=== PATIENT | male | born 1950 | race Caucasian/White ===

== ENCOUNTER 2020-05-14 08:04 | Outpatient (REF) | payer MEDICARE, SELFPAY ==
[2020-05-14 11:41] LABS: Alanine Aminotransferase 18 U/L (0-40); Albumin Level 4.5 g/dL (3.5-5.0); Alkaline Phosphatase 74 U/L (39-117); Anion Gap 12 (12-20); Aspartate Amino Transferase 20 U/L (5-37); Bilirubin Total 0.7 mg/dL (0.0-1.0); Blood Urea Nitrogen 18 mg/dL (9-16); Carbon Dioxide 34 mmol/L (22-29); Chloride 100 mmol/L (96-108); Cholesterol 167 mg/dL; Estimated Glomerular Filt Rate > 60; Glucose Fasting 93 mg/dL (60-99); HDL Cholesterol 39 mg/dL; LDL Cholesterol Calculated 95 mg/dl; Potassium 4.7 mmol/l (3.3-5.1); Sodium 141 mmol/L (135-145); Total Protein 7.1 g/dL (6.5-8.0); Triglycerides 168 mg/dL
[2020-05-14 11:42] LABS: Estimated Average Glucose 117 mg/dL; Hemoglobin A1c % 5.7 %
== END 2020-05-14 08:05 | disposition home or self-care (01) ==
LOC: HO.MANLR 08:04
PROVIDERS: PCP Internal Medicine; Visit Provider Internal Medicine
DX: E78.00 Pure hypercholesterolemia, unspecified (principal); R73.01 Impaired fasting glucose; I10 Essential (primary) hypertension
CPT/HCPCS: 80053; 80061; 83036

== ENCOUNTER 2020-12-15 09:14 | Outpatient (REF) | payer MEDICARE, SELFPAY ==
[2020-12-15 11:15] LABS: Estimated Average Glucose 120 mg/dL; Hemoglobin A1c % 5.8 %
[2020-12-15 11:32] LABS: Alanine Aminotransferase 16 U/L (0-40); Albumin Level 4.3 g/dL (3.5-5.0); Alkaline Phosphatase 79 U/L (39-117); Anion Gap 15 (12-20); Aspartate Amino Transferase 19 U/L (5-37); Bilirubin Total 0.6 mg/dL (0.0-1.0); Blood Urea Nitrogen 14 mg/dL (9-16); Calcium 9.4 mg/dL (8.4-10.2); Carbon Dioxide 30 mmol/L (22-29); Chloride 102 mmol/L (96-108); Cholesterol 166 mg/dL; Estimated Glomerular Filt Rate > 60; Glucose Fasting 95 mg/dL (60-99); HDL Cholesterol 41 mg/dL; LDL Cholesterol Calculated 95 mg/dl; Potassium 4.9 mmol/L (3.3-5.1); Sodium 142 mmol/L (135-145); Total Protein 7.2 g/dL (6.5-8.0); Triglycerides 153 mg/dL
== END 2020-12-15 09:15 | disposition home or self-care (01) ==
LOC: HO.MANLDS 09:14
PROVIDERS: PCP Internal Medicine; Visit Provider Internal Medicine
DX: E78.00 Pure hypercholesterolemia, unspecified (principal); R73.01 Impaired fasting glucose; I10 Essential (primary) hypertension
CPT/HCPCS: 36415; 80053; 80061; 83036

== ENCOUNTER 2021-07-06 09:10 | Outpatient (REF) | payer MEDICARE, SELFPAY ==
[2021-07-06 11:10] LABS: Estimated Average Glucose 117 mg/dL; Hemoglobin A1c % 5.7 %
[2021-07-06 11:39] LABS: Alanine Aminotransferase 18 U/L (0-40); Albumin Level 4.6 g/dL (3.5-5.0); Alkaline Phosphatase 82 U/L (39-117); Anion Gap 13 (12-20); Aspartate Amino Transferase 22 U/L (5-37); Bilirubin Total 0.5 mg/dL (0.0-1.0); Blood Urea Nitrogen 15 mg/dL (9-16); Calcium 9.8 mg/dL (8.4-10.2); Carbon Dioxide 35 mmol/L (22-29); Chloride 99 mmol/L (96-108); Cholesterol 184 mg/dL; Estimated Glomerular Filt Rate > 60; Glucose Fasting 107 mg/dL (60-99); HDL Cholesterol 48 mg/dL; LDL Cholesterol Calculated 106 mg/dl; Potassium 4.6 mmol/L (3.3-5.1); Sodium 142 mmol/L (135-145); Total Protein 7.6 g/dL (6.5-8.0); Triglycerides 150 mg/dL
[2021-07-07 07:44] LABS: ~HepC Num1 0.12 S/CO (0.00-0.79); ~Hepatitis C Antibody Nonreactive (Nonreactive)
== END 2021-07-06 09:11 | disposition home or self-care (01) ==
LOC: HO.MANLDS 09:10
PROVIDERS: PCP Internal Medicine; Visit Provider Internal Medicine
DX: E78.00 Pure hypercholesterolemia, unspecified (principal); R73.01 Impaired fasting glucose; I10 Essential (primary) hypertension; Z11.59 Encounter for screening for other viral diseases
CPT/HCPCS: 36415; 80053; 80061; 83036; 86803

== ENCOUNTER 2022-01-23 10:33 | Outpatient (REF) | payer MEDICARE, SELFPAY ==
[2022-01-23 11:23] LABS: Estimated Average Glucose 120 mg/dL; Hemoglobin A1c % 5.8 %
[2022-01-23 11:46] LABS: Alanine Aminotransferase 18 U/L (0-40); Albumin Level 4.3 g/dL (3.5-5.0); Alkaline Phosphatase 71 U/L (39-117); Anion Gap 13 (12-20); Aspartate Amino Transferase 20 U/L (5-37); Bilirubin Total 0.6 mg/dL (0.0-1.0); Blood Urea Nitrogen 20 mg/dL (9-16); Calcium 9.4 mg/dL (8.4-10.2); Carbon Dioxide 34 mmol/L (22-29); Chloride 99 mmol/L (96-108); Cholesterol 140 mg/dL; Estimated Glomerular Filt Rate > 60; Glucose Random 106 mg/dL (60-115); HDL Cholesterol 41 mg/dL; LDL Cholesterol Calculated 76 mg/dl; Potassium 4.9 mmol/L (3.3-5.1); Sodium 141 mmol/L (135-145); Total Protein 7.2 g/dL (6.5-8.0); Triglycerides 117 mg/dL
== END 2022-01-23 10:34 | disposition home or self-care (01) ==
LOC: HO.MANLDS 10:33
PROVIDERS: Visit Provider Internal Medicine
DX: E78.00 Pure hypercholesterolemia, unspecified (principal); R73.01 Impaired fasting glucose; I10 Essential (primary) hypertension
CPT/HCPCS: 36415; 80053; 80061; 83036

== ENCOUNTER 2022-02-08 08:24 | Outpatient (REF) | payer MEDICARE, SELFPAY ==
[2022-02-08 10:46] LABS: Estimated Average Glucose 200 mg/dL; Hemoglobin A1c % 8.6 %
[2022-02-08 11:02] LABS: Alanine Aminotransferase 28 U/L (0-40); Albumin Level 4.4 g/dL (3.5-5.0); Alkaline Phosphatase 46 U/L (39-117); Anion Gap 20 (12-20); Aspartate Amino Transferase 34 U/L (5-37); Bilirubin Total 0.5 mg/dL (0.0-1.0); Blood Urea Nitrogen 34 mg/dL (9-16); Calcium 9.5 mg/dL (8.4-10.2); Carbon Dioxide 19 mmol/L (22-29); Chloride 105 mmol/L (96-108); Estimated Glomerular Filt Rate 36; Glucose Fasting 131 mg/dL (60-99); Potassium 4.6 mmol/L (3.3-5.1); Sodium 139 mmol/L (135-145); Total Protein 7.7 g/dL (6.5-8.0)
== END 2022-02-08 08:25 | disposition home or self-care (01) ==
LOC: HO.10HDL 08:24
PROVIDERS: Visit Provider Internal Medicine
DX: I12.9 Hypertensive chronic kidney disease with stage 1 through stage 4 chronic kidney disease, or unspecified chronic kidney disease (principal); N18.9 Chronic kidney disease, unspecified; E11.22 Type 2 diabetes mellitus with diabetic chronic kidney disease; G45.9 Transient cerebral ischemic attack, unspecified
CPT/HCPCS: 36415; 80053; 83036

== ENCOUNTER 2022-07-18 07:55 | Outpatient (REF) | payer MEDICARE, SELFPAY ==
[2022-07-18 11:06] LABS: MANUAL DIFF FLAG NO
[2022-07-18 11:18] LABS: Basophils Percent Auto 0.3 % (0-2); Eosinophils Absolute Auto 0.2 X10*3/uL (0.0-0.4); Eosinophils Percent Auto 2.3 % (0-4); Hematocrit 48.4 % (42.0-52.0); Hemoglobin 16.1 g/dl (14.0-18.0); Imm Gran Abs Auto 0.01 X10*3/uL (0.00-0.03); Imm Gran Pct Auto 0.1 % (0.0-0.4); Lymphocytes Absolute Auto 2.1 X10*3/uL (1.2-4.9); Lymphocytes Percent Auto 26.7 % (20-40); Mean Corpuscular HGB Conc 33.3 g/dl (31.0-36.0); Mean Corpuscular Hemoglobin 31.4 pg (27.0-33.0); Mean Corpuscular Volume 94.3 fL (80.0-98.0); Mean Platelet Volume 11.7 fL (9.4-12.4); Monocytes Absolute Auto 0.9 X10*3/uL (0.1-1.2); Monocytes Percent Auto 11.4 % (2-11); Neutrophils Absolute Auto 4.6 x10*3/uL (2.0-8.3); Neutrophils Percent Auto 59.2 % (45-73); Platelet Count 150 X10*3/uL (160-400); Red Blood Count 5.13 X10*6/uL (4.60-5.80); Red Cell Distribution Width 12.3 % (11.0-16.0); White Blood Count 7.8 X10*3/uL (4.8-10.8)
[2022-07-18 11:24] LABS: Estimated Average Glucose 114 mg/dL; Hemoglobin A1c % 5.6 %
[2022-07-18 11:50] LABS: Alanine Aminotransferase 16 U/L (0-40); Albumin Level 4.4 g/dL (3.5-5.0); Alkaline Phosphatase 84 U/L (39-117); Anion Gap 16 (12-20); Aspartate Amino Transferase 19 U/L (5-37); Bilirubin Total 0.7 mg/dL (0.0-1.0); Blood Urea Nitrogen 17 mg/dL (9-16); Calcium 9.7 mg/dL (8.4-10.2); Carbon Dioxide 33 mmol/L (22-29); Chloride 100 mmol/L (96-108); Cholesterol 175 mg/dL; Estimated Glomerular Filt Rate > 60; Glucose Random 107 mg/dL (60-115); HDL Cholesterol 46 mg/dL; LDL Cholesterol Calculated 97 mg/dl; Sodium 144 mmol/L (135-145); Total Protein 7.2 g/dL (6.5-8.0); Triglycerides 161 mg/dL
== END 2022-07-18 07:56 | disposition home or self-care (01) ==
LOC: HO.MANLDS 07:55
PROVIDERS: Visit Provider Internal Medicine
DX: E78.00 Pure hypercholesterolemia, unspecified (principal); I10 Essential (primary) hypertension; R73.01 Impaired fasting glucose
CPT/HCPCS: 36415; 80053; 80061; 83036; 85025

== ENCOUNTER 2022-09-02 09:01 | Emergency (ER) | payer MEDICARE, SELFPAY ==
--- NOTE | ~2022-09-02 | XR_ITS ---
EXAMINATION: XR CHEST CLINICAL INFORMATION: Cough COMPARISON: None available. TECHNIQUE: Frontal view of the chest was obtained. FINDINGS: No significant abnormality is noted involving the heart, lungs, mediastinum, bony thorax or soft tissues. XR/XR chest 1V IMPRESSION: Unremarkable chest examination.
[2022-09-02 09:08] VITALS: BP 212/83; PULSE 102; RESP 20; TEMP 36.3; O2SAT 90; BMI 31.0
--- NOTE | 2022-09-02 09:31 | ED.GENADULT ---
HPI - General Adult General Chief complaint: General Medical Stated complaint: nose bleed Time Seen by Provider: 09/02/22 09:25 Source: patient Mode of arrival: ambulatory Limitations: no limitations History of Present Illness HPI narrative: Epistaxis right nostril, the patient presented complaining of a nose bleed since yesterday the bleeding is in the right nostril Onset (ago): day(s) (1) Severity: moderate Quality: burning Pain Consistency: constant Exacerbating factors: none Related Data Previous Rx's Medication Instructions Recorded amoxicillin 500 mg tablet 500 mg PO TID #15 tabs 09/02/22 Allergies Allergy/AdvReac Type Severity Reaction Status Date / Time No Known Allergies Allergy Verified 09/02/22 09:30 Review of Systems Constitutional: Constitutional: Reports no additional constitutional complaints Cardiovascular: Comments: rt epistaxis PMFSH Past Medical History [facility] Narrative: Hypertension Social History Social History Alcohol intake: never Smoked in Last 30 Days: Yes Use of substances other than those prescribed or required for medical reasons: No Advance Directives: No Physical Exam ED Vital Signs: Vital Signs - 24 hr 09/02/22 09:08 09/02/22 09:46 09/02/22 10:21 Temperature 97.4 F Pulse Rate 102 H 93 86 Respiratory Rate 20 18 Blood Pressure 212/83 H 206/88 H 195/82 H Pulse Oximetry 90 L 90 L Oxygen Delivery Method Room Air Room Air 09/02/22 10:30 09/02/22 13:24 Temperature Pulse Rate 89 87 Respiratory Rate 18 18 Blood Pressure 178/76 H 165/70 H Pulse Oximetry 90 L 92 Oxygen Delivery Method Room Air Room Air BMI result Body Mass Index 31.0 Const General: cooperative Nutritional Appearance: average body habitus and well nourished Orientation/consciousness: patient oriented x3 HENMT Head: Yes normal to inspection Ears: hearing grossly normal bilaterally General nose exam: Normal external nose present, Epistaxis present on the right and Other nasal findings present Mouth: Normal oral and palatal mucosa present Throat: Yes posterior oropharynx normal Neck Neck: Yes normal visual inspection Chest Chest palpation & inspection: normal inspection of the chest Resp Effort & Inspection: normal respiratory effort Auscultation: clear to auscultation bilaterally Cardio Jugular venous distension: no JVD Rate: regular rate Rhythm: regular rhythm GI Inspection: Yes normal to inspection Palpation (GI): Soft to palpation, not firm, nontender and no guarding Skin General skin exam: no rashes or lesions noted, elasticity normal and turgor normal Lesions: no lesions Rashes: no rashes Wounds: no wounds Neuro General: patient oriented x3 Course Reevaluation(s) Reevaluation #1: No bleeding at this time, sat was noted to be 90% room air but he is active smoker most likely a COPD CXR negative Time: 11:10 Reevaluation #2: No bleeding noted he was also serve a few hours emergency department, the [facility] he was packed, his oxygen was noted to be in the low side he has a COPD ear I was going to do a CT scan of the chest to rule out PE but the patient refused stating that he feels well he does not feel short of breath. At this point the patient requests discharge we will discharge him home with follow-up with the ENT and PCP Time: 12:31 Medications Administered Discontinued Medications Generic Name Dose Route Start Last Admin Trade Name Kongq PRN Reason Stop Dose Admin Clonidine HCl 0.1 mg 09/02/22 10:22 09/02/22 10:30 Clonidine Hcl 0.1 Mg Tablet PO 09/02/22 10:23 0.1 mg ONCE ONE Administration Protocol Lidocaine HCl 15 ml 09/02/22 09:30 09/02/22 10:30 Lidocaine Hcl Viscous 2 % 15 Ml Solution MUCOUS MEM 09/02/22 09:31 15 ml ONCE ONE Administration Lisinopril 20 mg 09/02/22 09:31 09/02/22 09:46 Lisinopril 20 Mg Tablet PO 09/02/22 09:32 20 mg ONCE ONE Administration Protocol Procedures Epistaxis Control Time Out Performed: Yes Nostril: Yes right Nose prepped with: Yes lidocaine Direct inspection: Yes unable to visualize Epistaxis treatment: Yes inflatable pack Results of treatment: Yes bleeding controlled Complications: Yes none Medical Decision Making Medical Decision Making MDM Narrative: Patient presented with epistaxis no other complain the right nostril was packed Differential Diagnosis Differential Diagnoses: The differential diagnosis associated with the presentation includes Admission/Observation Consideration of admission/observation: Escalation of care including admission/observation considered Lab Data MDM Lab Attestation statement: I reviewed the patient's lab results. 09/02/22 09:37 09/02/22 09:36 Labs: Lab Results 09/02/22 09/02/22 09/02/22 Range/Units 09:36 09:37 09:37 WBC 5.4 (4.8-10.8) X10*3/uL RBC 4.84 (4.60-5.80) X10*6/uL Hgb 15.3 (14.0-18.0) g/dl Hct 45.5 (42.0-52.0) % MCV 94.0 (80.0-98.0) fL MCH 31.6 (27.0-33.0) pg MCHC 33.6 (31.0-36.0) g/dl RDW 12.5 (11.0-16.0) % Plt Count 149 L (160-400) X10*3/uL MPV 11.2 (9.4-12.4) fL Immature Gran % (Auto) 0.4 (0.0-0.4) % Neut % (Auto) 54.0 (45-73) % Lymph % (Auto) 31.2 (20-40) % Brantley % (Auto) 10.9 (2-11) % Eos % (Auto) 2.8 (0-4) % Baso % (Auto) 0.7 (0-2) % Lymph # (Auto) 1.7 (1.2-4.9) X10*3/uL Brantley # (Auto) 0.6 (0.1-1.2) X10*3/uL Eos # (Auto) 0.2 (0.0-0.4) X10*3/uL Baso # (Auto) 0.0 (0.0-0.2) X10*3/uL Abs Immat Gran (auto) 0.02 (0.00-0.03) X10*3/uL Absolute Neuts (auto) 2.9 (2.0-8.3) x10*3/uL Absolute Nucleated RBC 0.000 (0.0-0.012) X10*3/uL Nucleated RBC % (auto) 0.0 (0.0-0.2) /100WBC PT 11.4 (10.0-13.1) SEC INR 1.0 (0.9-1.1) APTT 29.8 (26.0-36.4) SEC Sodium 140 (135-145) mmol/L Potassium 4.7 (3.3-5.1) mmol/L Chloride 100 (96-108) mmol/L Carbon Dioxide 31 H (22-29) mmol/L Anion Gap 14 (12-20) BUN 16 (9-16) mg/dL Creatinine 0.79 (0.5-1.4) mg/dL Estim Creat Clear Calc 94.8 Estimated GFR > 60 Random Glucose 107 (60-115) mg/dL Calcium 9.3 (8.4-10.2) mg/dL Total Bilirubin 0.6 (0.0-1.0) mg/dL AST 19 (5-37) U/L ALT 16 (0-40) U/L Alkaline Phosphatase 84 (39-117) U/L Total Protein 7.2 (6.5-8.0) g/dL Albumin 4.5 (3.5-5.0) g/dL Independent Interpretation I performed an independent interpretation of an: Plain X-Ray Interpretation: negatiuve Radiology Impression Discussion of test interpretation with radiology: I have reviewed the radiologist's reading. Radiologist Impression: EXAMINATION: XR CHEST CLINICAL INFORMATION: Cough COMPARISON: None available. TECHNIQUE: Frontal view of the chest was obtained. FINDINGS: No significant abnormality is noted involving the heart, lungs, mediastinum, bony thorax or soft tissues. XR/XR chest 1V IMPRESSION: Unremarkable chest examination. ? Dictated By: Shashank Kumar MD Signed By: <Electronically signed by Shashank Kumar MD in OV> 09/02/22 1054 DD/ 1027 TD/TT:? Sole Layer Hand: [facility] – [place] Discharge Plan Discharge Clinical Impression: Epistaxis Patient Disposition: Home, Self-Care Instructions: Nosebleed (ED) Additional Instructions: Take antibiotic as directed, keep the packing until you see the ENT, the packing should be removed in 3 days, follow-up with your primary care physician you oxygen was in low side most likely because you have COPD from smoking, however your refused the the CT scan of the chest Prescriptions: New amoxicillin 500 mg tablet 500 mg PO TID Qty: 15 0RF Referrals: Juan Pablo Fernandez [Physician] - 3 days Interventions: ED Discharge Assessment Last Done: 09/02/22 13:24 Discharge Date/Time: 09/02/22 13:26
[2022-09-02 09:41] LABS: MANUAL DIFF FLAG NO
[2022-09-02 09:46] VITALS: BP 206/88; PULSE 93; RESP 18
[2022-09-02] MEDS: lisinopriL 20 MG TABLET PO (09:46)
[2022-09-02 10:02] LABS: Basophils Percent Auto 0.7 % (0-2); Eosinophils Absolute Auto 0.2 X10*3/uL (0.0-0.4); Eosinophils Percent Auto 2.8 % (0-4); Hematocrit 45.5 % (42.0-52.0); Hemoglobin 15.3 g/dl (14.0-18.0); Imm Gran Abs Auto 0.02 X10*3/uL (0.00-0.03); Imm Gran Pct Auto 0.4 % (0.0-0.4); Lymphocytes Absolute Auto 1.7 X10*3/uL (1.2-4.9); Lymphocytes Percent Auto 31.2 % (20-40); Mean Corpuscular HGB Conc 33.6 g/dl (31.0-36.0); Mean Corpuscular Hemoglobin 31.6 pg (27.0-33.0); Mean Platelet Volume 11.2 fL (9.4-12.4); Monocytes Absolute Auto 0.6 X10*3/uL (0.1-1.2); Monocytes Percent Auto 10.9 % (2-11); Neutrophils Absolute Auto 2.9 x10*3/uL (2.0-8.3); Platelet Count 149 X10*3/uL (160-400); Red Blood Count 4.84 X10*6/uL (4.60-5.80); Red Cell Distribution Width 12.5 % (11.0-16.0); White Blood Count 5.4 X10*3/uL (4.8-10.8)
[2022-09-02 10:06] LABS: Prothrombin Time 11.4 SEC (10.0-13.1)
[2022-09-02 10:08] LABS: Alanine Aminotransferase 16 U/L (0-40); Albumin Level 4.5 g/dL (3.5-5.0); Alkaline Phosphatase 84 U/L (39-117); Anion Gap 14 (12-20); Aspartate Amino Transferase 19 U/L (5-37); Bilirubin Total 0.6 mg/dL (0.0-1.0); Blood Urea Nitrogen 16 mg/dL (9-16); Calcium 9.3 mg/dL (8.4-10.2); Carbon Dioxide 31 mmol/L (22-29); Chloride 100 mmol/L (96-108); Creatinine Clr Calc Pharmacy 94.8; Estimated Glomerular Filt Rate > 60; Glucose Random 107 mg/dL (60-115); Potassium 4.7 mmol/L (3.3-5.1); Sodium 140 mmol/L (135-145); Total Protein 7.2 g/dL (6.5-8.0)
[2022-09-02 10:09] LABS: Partial Thromboplastin Time 29.8 SEC (26.0-36.4)
[2022-09-02 10:21] VITALS: BP 195/82; PULSE 86; O2SAT 90
[2022-09-02 10:30] VITALS: BP 178/76; PULSE 89; RESP 18; O2SAT 90
[2022-09-02] MEDS: Lidocaine HCl Viscous 2 % 15 ML SOLUTION MUCOUS MEM (10:30)
[2022-09-02] MEDS: cloNIDine HCL 0.1 MG TABLET PO (10:30)
--- NOTE | 2022-09-02 10:40 | PC.NURSE ---
Rhynorocket in place to right nare. BP noted to still be elevate, patient medicated per MAR. Patient calm and cooperative; X-ray obtained awaiting results at this time.
--- NOTE | 2022-09-02 11:00 | PC.NURSE ---
Patient with Low O2 sat, high 80's to 90%. Provider made aware, no supplemental O2 at this time; will get CT to check for blood clot.
--- NOTE | 2022-09-02 12:30 | PC.NURSE ---
Patient declining to have CT scan done at this time, would prefer to be discharged home. Patient well appearing sitting at edge of bed. O2 sat 92% on room air.
[2022-09-02 13:24] VITALS: BP 165/70; PULSE 87; RESP 18; O2SAT 92
== END 2022-09-02 13:26 | disposition home or self-care (01) ==
PROVIDERS: Emergency Provider Emergency Medicine; PCP Internal Medicine
DX: R04.0 Epistaxis (principal); I10 Essential (primary) hypertension
CPT/HCPCS: 30901; 36415; 71045; 80053; 85025; 85610; 85730; 99284

== ENCOUNTER 2022-09-02 19:52 | Emergency (ER) | payer MEDICARE, SELFPAY ==
[2022-09-02 19:59] VITALS: BP 190/72; PULSE 94; RESP 20; TEMP 36.7; O2SAT 93; BMI 31.0
--- NOTE | 2022-09-02 19:59 | ED_ITS ---
History of Present Illness General Chief Complaint: Epistaxis <YESSY Maldonado Last Filed: 09/02/22 20:05> Stated Complaint: recurring bloody nose <YESSY Maldonado Last Filed: 09/02/22 20:05> Time Seen by Provider: 09/02/22 21:57 <YESSY Maldonado Last Filed: 09/02/22 20:05> Source: patient <YESSY Mejía Last Filed: 09/02/22 23:07> Mode of arrival: ambulatory <YESSY Mejía Last Filed: 09/02/22 23:07> Limitations: no limitations <YESSY Mejía Last Filed: 09/02/22 23:07> History of Present Illness HPI Narrative: 72-year-old male history of COPD presents for the 2nd time today for epistaxis. Patient tells me is nose has been bleeding since yesterday. He was seen in the emergency department earlier today and he had a rhino rocket placed to the right naris, he tells me he went home and noted that there is bleeding around the rhino rocket. Patient is very uncomfortable. He is not on any anticoagulants or aspirin. No history of hypercoagulable disorders. Denies headache, vision changes, nausea, vomiting, chest pain, shortness of breath, headache, vision changes. <YESSY Mejía Last Filed: 09/02/22 23:07> Related Data Home Medications: Previous Rx's Medication Instructions Recorded amoxicillin 500 mg tablet 500 mg PO TID #15 tabs 09/02/22 <YESSY Maldnoado Last Filed: 09/02/22 20:05> Allergies/Adverse Reactions: Allergies Allergy/AdvReac Type Severity Reaction Status Date / Time No Known Allergies Allergy Verified 09/02/22 09:30 <YESSY Maldonado Last Filed: 09/02/22 20:05> Review of Systems Review of Systems: Constitutional : No Weight loss, No Fever, No Chills, No Fatigue, No Malaise ENT/Mouth : No sore throat, No Rhinorrhea, + epistaxis Eyes: No Eye Pain, No Swelling, No Redness Cardiovascular : No Chest Pain, No SOB, No Dyspnea on Exertion, No Orthopnea, No Edema, No Palpitations Respiratory : No Cough, No Sputum, No Wheezing Gastrointestinal : No Nausea, No Vomiting, No Diarrhea, No Constipation, No abdominal Pain, No Hematochezia, No Melena Genitourinary : No Dysuria, No Urinary Frequency, No Hematuria, Musculoskeletal : No joint pain, No Myalgias, No Joint Swelling Skin : No Skin Lesions, No rash Neuro : No Weakness, No Numbness, No Dizziness, No Headache Psych : No Anxiety/Panic, No Depression All other systems reviewed and are negative <YESSY Mejía - Last Filed: 09/02/22 23:07> Yes all other systems are reviewed and are negative <YESSY Mejía - Last Filed: 09/02/22 23:07> [facility] Past Medical History Attestation statement: The following information was validated with the patient. <YESSY Mejía - Last Filed: 09/02/22 23:07> Source: old records reviewed and nursing notes reviewed <YESSY Mejía - Last Filed: 09/02/22 23:07> Social History Social History: Social History Alcohol intake: never Advance Directives: No Advance Directives Information Provided: No <YESSY Maldonado - Last Filed: 09/02/22 20:05> Physical Exam Vital Signs: Vital Signs: Last Vital Signs Temp 98.0 F 09/02/22 19:59 Pulse 94 09/02/22 19:59 Resp 20 09/02/22 19:59 BP 190/72 H 09/02/22 19:59 Pulse Ox 93 09/02/22 19:59 O2 Del Method Room Air 09/02/22 19:59 BMI result Body Mass Index 31.0 <YESSY Maldonado - Last Filed: 09/02/22 20:05> Vital Signs: Last Vital Signs Temp 98.0 F 09/02/22 19:59 Pulse 94 09/02/22 19:59 Resp 09/02/22 19:59 BP 190/72 H 09/02/22 19:59 Pulse Ox 93 09/02/22 19:59 O2 Del Method Room Air 09/02/22 19:59 BMI result Body Mass Index 31.0 vss <YESSY Mejía Last Filed: 09/02/22 23:07> Appearance: Alert.? Oriented X3.? No acute distress.? Head: Normocephalic, atraumatic, no step-offs or deformities Eyes: Pupils equal, round and reactive to light.? ENT: Pharynx normal.?+ active bleeding from right naris around rhino rocket. Normal left nares. No bleeding in oropharynx. Neck: Normal inspection.? Neck supple.? CVS: Normal heart rate and rhythm.? Pulses normal.? Respiratory: No respiratory distress.? Breath sounds normal.? Abdomen: Soft and nontender.? Skin: Skin warm and dry.? Normal skin color.? Normal skin turgor.? Extremities: No lower extremity edema.? No calf ttp. 5/5 strength to bilateral upper and lower extremities Back: No midline tenderness, no C-spine tenderness, full range of motion, no CVA tenderness bilaterally Neuro: Oriented X 3.? No motor deficit.? No sensory deficit. CN 2-12 intact <YESSY Mejía Last Filed: 09/02/22 23:07> Course Course Course Narrative: RME--72yo M w/PMHx right nare epistaxis s/p rhinorhocket placement in our ED this AM presenting to the ED c/o bleeding around rhocket since discharge, starting 1hr after being home. Reports sx occur with any movement/position changes. Reports mild lightheadedness. Denies fever and anticoagulation. Patient noted to be hypoxic 90% on room air this morning, refused CTA. Denies SOB 93% in triage now, scant leaking noted from right nare around rhinorocket. No posterior oropharyngeal bleeding appreciated <YESSY Maldonado Last Filed: 09/02/22 20:05> Reevaluation(s) Reevaluation #1: Patient's CBC with slight decrease in hemoglobin and hematocrit on consume tear to earlier this morning. He was 15.3 and 45.5 now 14.7 and 43.1. Platelet count is 142. Coags unremarkable. Earlier today patient had an unremarkable chest x-ray. Again patient refusing CT of the chest to rule out PE. <YESSY Mejía Last Filed: 09/02/22 23:07> Time: 22:28 <YESSY Mejía - Last Filed: 09/02/22 23:07> Reevaluation #2: New rhino rocket was placed with soaked in TXA. Patient tolerated procedure well. <YESSY Mejía - Last Filed: 09/02/22 23:07> Time: 22:44 <YESSY Mejía - Last Filed: 09/02/22 23:07> Reevaluation #3: On re-evaluation patient's nose is no longer bleeding around the rhino rocket. Patient tells me that it feels much more snug to his nares, hemodynami glenn stable on the monitor. Again continues to refuse CTA of the chest. Patient to be discharged home with prompt PCP follow-up as well as ENT follow- up. Educated patient on diagnosis and treatment plan, answered all question, patient verbalizes understanding. At this time patient will be discharged home, advised to return with new or worsening symptoms. Educated on worrisome signs and symptoms and when to return. At this time I feel comfortable discharge home. <YESSY Mejía - Last Filed: 09/02/22 23:07> Time: 23:06 <YESSY Mejía - Last Filed: 09/02/22 23:07> Consultations Consultation #1: Discussed w/ Dr. Soto who agrees w/ dx and tx plan <YESSY Mejía - Last Filed: 09/02/22 23:07> Time: 23:07 <YESSY Mejía - Last Filed: 09/02/22 23:07> Medications Administered Discontinued Medications Generic Name Dose Route Start Last Admin Trade Name Freq PRN Reason Stop Dose Admin Tranexamic Acid 500 mg 09/02/22 22:24 09/02/22 22:33 Tranexamic Acid 1,000 Mg/10 Ml Vial INTRANASAL 09/02/22 22:25 500 mg ONCE ONE Administration <YESSY Maldonado - Last Filed: 09/02/22 20:05> Medications Administered Discontinued Medications Generic Name Dose Route Start Last Admin Trade Name Freq PRN Reason Stop Dose Admin Tranexamic Acid 500 mg 09/02/22 22:24 09/02/22 22:33 Tranexamic Acid 1,000 Mg/10 Ml Vial INTRANASAL 09/02/22 22:25 500 mg ONCE ONE Administration <YESSY Mejía Last Filed: 09/02/22 23:07> Medical Decision Making Medical Decision Making [facility] Narrative: [id number] 72-year-old male presents with epistaxis, was seen here earlier today for the same complaint had a rhino rocket the right nares. Despite this continues to bleed Physical exam significant for active bleeding from right naris around rhino rocket. Normal left nares. No bleeding in oropharynx. Patient is noted to be 93% on room air. Likely posterior nose bleed hypertension could be contributing to this. Other differentials include hypocoagulable disorders. Unlikely medication induced. Patient was 90% on room air earlier today, now 93% on room air, was offered a CTA by previous provider in by this PA-C however patient refusing he says he is not short of breath and he does not think he has a blood clot. Breath sounds clear unlikely pneumonia, CHF. Plan at this time is to remove rhino rocket and replace with a rhino rocket soaked in TXA. <YESSY Mejía Last Filed: 09/02/22 23:07> Differential Diagnosis Differential Diagnoses: The differential diagnosis associated with the presentation includes <YESSY Mejía Last Filed: 09/02/22 23:07> Likely posterior nose bleed hypertension could be contributing to this. Other differentials include hypocoagulable disorders. Unlikely medication induced. Patient was 90% on room air earlier today, now 93% on room air, was offered a CTA by previous provider in by this PA-C however patient refusing he says he is not short of breath and he does not think he has a blood clot.Breath sounds clear unlikely pneumonia, CHF. <YESSY Mejía Last Filed: 09/02/22 23:07> Admission/Observation Consideration of admission/observation: Escalation of care including admission/observation considered <YESSY Mejía Last Filed: 09/02/22 23:07> Lab Data [facility] Lab Attestation statement: I reviewed the patient's lab results. <YESSY Mejía Last Filed: 09/02/22 23:07> Result Diagrams: 09/02/22 20:52 <YESSY Maldonado - Last Filed: 09/02/22 20:05> Labs: Lab Results 09/02/22 09/02/22 Range/Units 20:52 20:52 WBC 5.9 (4.8-10.8) X10*3/uL RBC 4.72 (4.60-5.80) X10*6/uL Hgb 14.7 (14.0-18.0) g/dl Hct 43.1 (42.0-52.0) % MCV 91.3 (80.0-98.0) fL MCH 31.1 (27.0-33.0) pg MCHC 34.1 (31.0-36.0) g/dl RDW 12.4 (11.0-16.0) % Plt Count 142 L (160-400) X10*3/uL MPV 10.7 (9.4-12.4) fL Immature Gran % (Auto) 0.2 (0.0-0.4) % Neut % (Auto) 55.2 (45-73) % Lymph % (Auto) 28.8 (20-40) % Garza % (Auto) 12.8 H (2-11) % Eos % (Auto) 2.7 (0-4) % Baso % (Auto) 0.3 (0-2) % Lymph # (Auto) 1.7 (1.2-4.9) X10*3/uL Garza # (Auto) 0.8 (0.1-1.2) X10*3/uL Eos # (Auto) 0.2 (0.0-0.4) X10*3/uL Baso # (Auto) 0.0 (0.0-0.2) X10*3/uL Abs Immat Gran (auto) 0.01 (0.00-0.03) X10*3/uL Absolute Neuts (auto) 3.2 (2.0-8.3) x10*3/uL Absolute Nucleated RBC 0.000 (0.0-0.012) X10*3/uL Nucleated RBC % (auto) 0.0 (0.0-0.2) /100WBC PT 11.9 (10.0-13.1) SEC INR 1.0 (0.9-1.1) <YESSY Maldonado - Last Filed: 09/02/22 20:05> Lab Results 09/02/22 09/02/22 Range/Units 20:52 20:52 WBC 5.9 (4.8-10.8) X10*3/uL RBC 4.72 (4.60-5.80) X10*6/uL Hgb 14.7 (14.0-18.0) g/dl Hct 43.1 (42.0-52.0) % MCV 91.3 (80.0-98.0) fL MCH 31.1 (27.0-33.0) pg MCHC 34.1 (31.0-36.0) g/dl RDW 12.4 (11.0-16.0) % Plt Count 142 L (160-400) X10*3/uL MPV 10.7 (9.4-12.4) fL Immature Gran % (Auto) 0.2 (0.0-0.4) % Neut % (Auto) 55.2 (45-73) % Lymph % (Auto) 28.8 (20-40) % Garza % (Auto) 12.8 H (2-11) % Eos % (Auto) 2.7 (0-4) % Baso % (Auto) 0.3 (0-2) % Lymph # (Auto) 1.7 (1.2-4.9) X10*3/uL Garza # (Auto) 0.8 (0.1-1.2) X10*3/uL Eos # (Auto) 0.2 (0.0-0.4) X10*3/uL Baso # (Auto) 0.0 (0.0-0.2) X10*3/uL Abs Immat Gran (auto) 0.01 (0.00-0.03) X10*3/uL Absolute Neuts (auto) 3.2 (2.0-8.3) x10*3/uL Absolute Nucleated RBC 0.000 (0.0-0.012) X10*3/uL Nucleated RBC % (auto) 0.0 (0.0-0.2) /100WBC PT 11.9 (10.0-13.1) SEC INR 1.0 (0.9-1.1) <YESSY Mejía - Last Filed: 09/02/22 23:07> Critical Care Time Critical Care Time Critical Care Time: No <YESSY Mejía Last Filed: 09/02/22 23:07> Discharge Plan Discharge Clinical Impression: Epistaxis <YESSY Maldonado Last Filed: 09/02/22 20:05> Patient Disposition: Home, Self-Care <YESSY Maldonado Last Filed: 09/02/22 20:05> Instructions: Nosebleed (ED) <YESSY Maldonado Last Filed: 09/02/22 20:05> Additional Instructions: Take your medications as prescribed. If you were prescribed antibiotics today, it is important that you take your medication to their entirety, do not skip any doses, do not finish them early. Follow-up with your primary care provider this week. Follow up with ears, nose and throat as soon as possible Return to the emergency department with new or worsening symptoms. Such as fevers, chills, chest pain, shortness of breath, nausea, vomiting, dizziness, headache, vision changes, lethargy, nasal bleeding In case of emergency call 911 <YESSY Maldonado Last Filed: 09/02/22 20:05> Prescriptions: No Action amoxicillin 500 mg tablet 500 mg PO TID Qty: 15 0RF <YESSY Maldonado - Last Filed: 09/02/22 20:05> Referrals: Mike Dominguez MD [Primary Care Provider] - 2 days Juan Pablo Fernandez [Physician] - 3 days <YESSY Maldonado Last Filed: 09/02/22 20:05>
[2022-09-02 20:56] LABS: MANUAL DIFF FLAG NO
[2022-09-02 20:57] LABS: Basophils Percent Auto 0.3 % (0-2); Eosinophils Absolute Auto 0.2 X10*3/uL (0.0-0.4); Eosinophils Percent Auto 2.7 % (0-4); Hematocrit 43.1 % (42.0-52.0); Hemoglobin 14.7 g/dl (14.0-18.0); Imm Gran Abs Auto 0.01 X10*3/uL (0.00-0.03); Imm Gran Pct Auto 0.2 % (0.0-0.4); Lymphocytes Absolute Auto 1.7 X10*3/uL (1.2-4.9); Lymphocytes Percent Auto 28.8 % (20-40); Mean Corpuscular HGB Conc 34.1 g/dl (31.0-36.0); Mean Corpuscular Hemoglobin 31.1 pg (27.0-33.0); Mean Corpuscular Volume 91.3 fL (80.0-98.0); Mean Platelet Volume 10.7 fL (9.4-12.4); Monocytes Absolute Auto 0.8 X10*3/uL (0.1-1.2); Monocytes Percent Auto 12.8 % (2-11); Neutrophils Absolute Auto 3.2 x10*3/uL (2.0-8.3); Neutrophils Percent Auto 55.2 % (45-73); Platelet Count 142 X10*3/uL (160-400); Red Blood Count 4.72 X10*6/uL (4.60-5.80); Red Cell Distribution Width 12.4 % (11.0-16.0); White Blood Count 5.9 X10*3/uL (4.8-10.8)
[2022-09-02 21:03] LABS: Prothrombin Time 11.9 SEC (10.0-13.1)
[2022-09-02] MEDS: Tranexamic Acid 1,000 MG/10 ML VIAL 500 MG INTRANASAL (22:33)
== END 2022-09-02 23:11 | disposition home or self-care (01) ==
PROVIDERS: Physician Assistant; Emergency Provider Emergency Medicine; PCP Internal Medicine
DX: R04.0 Epistaxis (principal)
CPT/HCPCS: 36415; 85025; 85610; 99282

== ENCOUNTER 2022-10-17 15:39 | Outpatient (REF) | payer MEDICARE, SELFPAY ==
[2022-10-17 19:01] LABS: MANUAL DIFF FLAG NO
[2022-10-17 19:03] LABS: Basophils Percent Auto 0.3 % (0-2); Eosinophils Absolute Auto 0.1 X10*3/uL (0.0-0.4); Eosinophils Percent Auto 0.6 % (0-4); Hematocrit 36.8 % (42.0-52.0); Hemoglobin 12.4 g/dl (14.0-18.0); Imm Gran Abs Auto 0.02 X10*3/uL (0.00-0.03); Imm Gran Pct Auto 0.2 % (0.0-0.4); Lymphocytes Percent Auto 9.3 % (20-40); Mean Corpuscular HGB Conc 33.7 g/dl (31.0-36.0); Mean Corpuscular Hemoglobin 30.8 pg (27.0-33.0); Mean Corpuscular Volume 91.3 fL (80.0-98.0); Mean Platelet Volume 11.1 fL (9.4-12.4); Monocytes Absolute Auto 1.3 X10*3/uL (0.1-1.2); Monocytes Percent Auto 12.4 % (2-11); Neutrophils Absolute Auto 7.9 x10*3/uL (2.0-8.3); Neutrophils Percent Auto 77.2 % (45-73); Platelet Count 170 X10*3/uL (160-400); Red Blood Count 4.03 X10*6/uL (4.60-5.80); Red Cell Distribution Width 12.2 % (11.0-16.0); White Blood Count 10.2 X10*3/uL (4.8-10.8)
[2022-10-17 19:20] LABS: Iron 29 mcg/dL (45-160); Percent Iron Saturation 13 % (15-50); Total Iron Binding Capacity 223 mcg/dL (228-428); Unsaturated Iron Binding 194 ug/dL
[2022-10-17 19:34] LABS: Ferritin 417 ng/mL (20-250); Free T4 (Free Thyroxine) 1.16 ng/dL (0.71-1.85); Prostate Specific Antigen 14.51 ng/mL (<0.05-4.0); Thyroid Stimulating Hormone 0.81 uIU/mL (0.32-4.0)
== END 2022-10-17 15:40 | disposition home or self-care (01) ==
LOC: HO.MANLDS 15:39
PROVIDERS: Visit Provider Physician Assistant
DX: Z12.5 Encounter for screening for malignant neoplasm of prostate (principal); R68.89 Other general symptoms and signs; R31.0 Gross hematuria; R53.83 Other fatigue; R68.83 Chills (without fever); L60.9 Nail disorder, unspecified
CPT/HCPCS: 36415; 82728; 83540; 84153; 84439; 84443; 85025

== ENCOUNTER 2022-10-17 16:02 | Outpatient (REF) | payer MEDICARE, SELFPAY ==
[2022-10-17 19:11] LABS: Appearance Urine Turbid; Bacteria Urine 4+ (None Seen); Color Urine Orange; Glucose Urine UA Negative (Negative); Leukocyte Esterase Urine Large (3+) (Negative); Nitrite Urine Positive (Negative); PH 6.5 (5.0-9.0); RBC Urine >20 /HPF (0-2); UACC Culture Trigger YES; UMIC TRIGGER UACC YES; Urine Blood Large (3+) (Negative); Urine Ketones Negative (Negative); Urine Protein 300 (3+) mg/dL (Neg-Trace); WBC Urine >50 /HPF (0-5)
== END 2022-10-17 16:03 | disposition home or self-care (01) ==
LOC: HO.MANLNP 16:02
PROVIDERS: Visit Provider Physician Assistant
DX: R31.0 Gross hematuria (principal)
CPT/HCPCS: 81001; 81003; 87086; 87088; 87186

== ENCOUNTER 2023-05-18 08:57 | Outpatient (REF) | payer MEDICARE, SELFPAY ==
[2023-05-18 13:03] LABS: MANUAL DIFF FLAG NO
[2023-05-18 13:10] LABS: Basophils Absolute Auto 0.1 X10*3/uL (0.0-0.2); Basophils Percent Auto 0.7 % (0-2); Eosinophils Absolute Auto 0.3 X10*3/uL (0.0-0.4); Eosinophils Percent Auto 4.1 % (0-4); Hematocrit 39.4 % (42.0-52.0); Hemoglobin 12.7 g/dl (14.0-18.0); Imm Gran Abs Auto 0.02 X10*3/uL (0.00-0.03); Imm Gran Pct Auto 0.3 % (0.0-0.4); Lymphocytes Absolute Auto 1.9 X10*3/uL (1.2-4.9); Mean Corpuscular HGB Conc 32.2 g/dl (31.0-36.0); Mean Corpuscular Hemoglobin 29.8 pg (27.0-33.0); Mean Corpuscular Volume 92.5 fL (80.0-98.0); Mean Platelet Volume 10.7 fL (9.4-12.4); Monocytes Absolute Auto 0.7 X10*3/uL (0.1-1.2); Monocytes Percent Auto 10.5 % (2-11); Neutrophils Absolute Auto 3.9 x10*3/uL (2.0-8.3); Neutrophils Percent Auto 57.4 % (45-73); Platelet Count 179 X10*3/uL (160-400); Red Blood Count 4.26 X10*6/uL (4.60-5.80); White Blood Count 6.9 X10*3/uL (4.8-10.8)
[2023-05-18 13:45] LABS: Estimated Average Glucose 111 mg/dL; Hemoglobin A1c % 5.5 % (<6.0)
[2023-05-18 14:00] LABS: Alanine Aminotransferase 15 U/L (0-40); Albumin Level 4.1 g/dL (3.5-5.0); Alkaline Phosphatase 88 U/L (39-117); Anion Gap 12 (12-20); Aspartate Amino Transferase 16 U/L (5-37); Bilirubin Total 0.4 mg/dL (0.0-1.0); Blood Urea Nitrogen 27 mg/dL (9-16); Calcium 9.3 mg/dL (8.4-10.2); Carbon Dioxide 33 mmol/L (22-29); Chloride 103 mmol/L (96-108); Cholesterol 144 mg/dL (<200); Estimated Glomerular Filt Rate > 60; Glucose Random 98 mg/dL (60-115); HDL Cholesterol 41 mg/dL (>40); LDL Cholesterol Calculated 64 mg/dL (<100); Potassium 4.6 mmol/L (3.3-5.1); Sodium 143 mmol/L (135-145); Total Protein 7.5 g/dL (6.5-8.0); Triglycerides 196 mg/dL (<150)
== END 2023-05-18 08:58 | disposition home or self-care (01) ==
LOC: HO.MANLDS 08:57
PROVIDERS: Visit Provider Internal Medicine
DX: E78.00 Pure hypercholesterolemia, unspecified (principal); I10 Essential (primary) hypertension; R73.01 Impaired fasting glucose
CPT/HCPCS: 36415; 80053; 80061; 83036; 85025

== ENCOUNTER 2024-07-18 08:45 | Outpatient (REF) | payer MEDICARE, SELFPAY ==
--- OUTSIDE RECORDS SUMMARY | 2024-07-18 09:06 | XMS_ITS | Data Portability ---
Author Organization 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 MUST MEET 2 OUT OF 3 ELEMENTS: PROBLEMS, DATA OR RISK ELEMENT 1: PROBLEMS ADDRESSED 1 OR MORE CHRONIC ILLNESS WITH EXACERBATION OR 2 OR MORE STABLE CHRONIC ILLNESSES OR 1 UNDIAGNOSED NEW PROBLEM OR 1 ACUTE ILLNESS W/SYMPTOMS OR 1 ACUTE COMPLICATED INJURY ELEMENT 2: DATA MUST MEET 1 OF 3 CATEGORIES CATEGORY 1: REVIEW OF PRIOR EXTERNAL NOTES, REVIEW OF RESULTS, ORDERING OF EACH TEST, ASSESSMENT REQUIRING INDEPENDENT HISTORIAN OR CATEGORY 2: INDEPENDENT INTERPRETATION OF TESTS BY ANOTHER PHYSICIAN OR SPECIALIST OR CATEGORY 3: DISCUSSION OF MGT OR TEST INTERPRETATION W/EXTERNAL PHYSICIAN OR SPECIALIST ELEMENT 3: RISK RISK OF COMPLICATIONS AND/OR MORBIDITY OR MORTALITY OF PATIENT MANAGEMENT PROVIDER MUST THOROUGHLY DOCUMENT EACH ELEMENT THAT IS COVERED Not available 05/23/2023 14:04:26 10/31/2023 10/31/2023 [id number] [place] [id number]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 MUST MEET 2 OUT OF 3 ELEMENTS: PROBLEMS, DATA OR RISK ELEMENT 1: PROBLEMS ADDRESSED 1 OR MORE CHRONIC ILLNESS WITH EXACERBATION OR 2 OR MORE STABLE CHRONIC ILLNESSES OR 1 UNDIAGNOSED NEW PROBLEM OR 1 ACUTE ILLNESS W/SYMPTOMS OR 1 ACUTE COMPLICATED INJURY ELEMENT 2: DATA MUST MEET 1 OF 3 CATEGORIES CATEGORY 1: REVIEW OF PRIOR EXTERNAL NOTES, REVIEW OF RESULTS, ORDERING OF EACH TEST, ASSESSMENT REQUIRING INDEPENDENT HISTORIAN OR CATEGORY 2: INDEPENDENT INTERPRETATION OF TESTS BY ANOTHER PHYSICIAN OR SPECIALIST OR CATEGORY 3: DISCUSSION OF MGT OR TEST INTERPRETATION W/EXTERNAL PHYSICIAN OR SPECIALIST ELEMENT 3: RISK RISK OF COMPLICATIONS AND/OR MORBIDITY OR MORTALITY OF PATIENT MANAGEMENT PROVIDER MUST THOROUGHLY DOCUMENT EACH ELEMENT THAT IS COVERED Not available 10/31/2023 10:35:18 02/04/2024 02/04/2024 Patient presente d to office today for their Medicare Annual Wellness Visit. Education was provided on healthy nutrition, including a diet rich in fruits and vegetables, minimizing simple carbohydrates, salt, and saturated fats. Encouraged regular cardiovascular exercise such as walking at least 30 minutes daily, 5 times per week. Emphasized preventive health measures and educated pt on fall prevention and community-based lifestyle interventions to help reduce health risks and promote healthy living. Not available 02/04/2024 11:56:16 Plan of Treatment Reminders Order Date Submit Date Provider Last Modified By Organization Details Last Modified Time Details Appointments FOLLOW UP 15 2024 10:45A M DR OSBORNE Not available Not available Not available Lab lipid panel, blood 2023 024 ATHENAFAX [facility], [address], [address], 02/04/2024 11:59:21 CBC w/ auto diff 2023 024 ATHENAFAX [facility], [address], [address], 02/04/2024 11:59:21 CMP, serum or plasma 2023 024 SVETA [facility], [address], [address], 03/05/2024 14:23:23 Referral None recorded. Procedures None recorded. Surgeries None recorded. Imaging XR, chest, 2 view 2023 024 [email or web address] Not available 10/22/2023 09:18:05 Medication Orders doxycycli ne hyclate 100 mg capsule 2023 024 [email or web address] [id number], [address] [place], [address], 10/31/2023 10:12:33 Patient TargetsNo targets recorded. Patient Instructions Encounter Date Encounter Id Patient Instructions Last Modified By Organization Details Last Modified Time 10/31/2023 [id number] pulse oximetry* [email or web address] Not available 10/31/2023 11:17:58 complete PFT w/ post bronchodilator spirometry* [email or web address] Not available 11/07/2023 08:32:18 02/04/2024 [id number] pulse oximetry* Not available 02/04/2024 11:57:50 advance care planning: care instructions Not available 02/04/2024 11:57:45 Discussed and explained advance directives such as standard forms to the {{patient caregive r patient and caregiver}}. Face to face discussion lasted for a duration of ___ minutes. [email or web address] Not available 01/30/2024 14:15:51 Reason for Referral None Reported. Results Created Date Observation Date Name Description Value Unit Range Abnormal Flag Note LastModifiedBy Organization Detail LastModifiedTime 10/31/19 24 10/31/2023 pulse oxime try* Result 86 Not Available [facility] [address] [facility] [address], [place], [address], 10/30/2023 16:37:28 02/04/20 24 02/04/2024 pulse oxime try* Result 90 % 5 Not Available [facility] [address] [facility] [address], [place], [address], 01/30/2024 14:17:15 07/09/19 24 07/09/2023 XR, ribs, bilat eral, 3 view No observ ation record ed. [email or web address] [facility] [address] [place], [address], 07/10/2023 09:51:10 11/26/19 24 11/26/2023 compl ete PFT w/ post [facility] mitch metry * No observ ation record ed. [facility]) [address] [place] [address], [address], 11/27/2023 13:35:09 11/26/19 24 11/26/2023 compl ete PFT w/ post [facility] mitch metry * No observ ation record ed. [facility]) [address] [place] [address], [address], 11/27/2023 13:35:10 11/26/19 24 11/26/2023 compl ete PFT w/ post [facility] mitch metry * No observ ation record ed. [facility] [address] [facility] [address], [place], [address], 11/27/2023 13:35:11 Result Notes None recorded. Problems Name Problem SNOMED Code Status Onset Date Resolution Date Notes Provider Name and Address Organization Details Recorded Time Impaired fasting glycemia 337037441 Active 2017 Not Available [facility] 3 11:53:10 Hypertensi ve disorder 58596553 Active 2017 Not Available [facility] 3 11:53:10 Allergic rhinitis 55013747 Active 2017 Not Available [facility] 3 11:53:10 Tobacco user 226816271 Active 2017 Not Available [facility] 3 11:53:09 Hyperchole sterolemia 12624656 Active 2017 Not Available [facility] 3 11:53:09 Chronic obstructiv e pulmonary disease 07183021 Active 2017 Not Available [facility] 3 11:53:09 Tobacco dependence syndrome 01194842 Active 2017 Not Available [facility] 3 11:53:10 Bleeding from nose 970621909 Active 2022 Not Available [facility] 3 11:53:09 Intolerant of cold 64825028 Active 2022 Not Available [facility] 3 11:53:10 Rib pain 204576564 Active 2022 Not Available [facility] 3 11:53:10 Mack hematuria 034252735 Active 2022 Not Available [facility] 3 11:53:09 Essential hypertensi on 59851993 Active 2022 Not Available [facility] 3 11:53:10 Prostate specific antigen above reference range 653467316 Active 2022 Not Available [facility] 3 11:53:10 Acute urinary tract infection 680785561 Active 2022 Not Available [facility] 3 11:53:10 Dysuria 76714329 Active 2022 Not Available [facility] 3 11:53:10 Acute bronchitis 61375362 Active 2023 YESSY LINK [address] [place], [address], [facility] 4 15:08:36 Costal chondritis 81028028 Active 2023 Y[address]Y [address] [place], [address], [facility] 4 09:34:43 Cough 99820921 Active 2023 [address]Y [address] [place], [address], [facility] 4 09:35:07 Morbid obesity 745814719 Active 2023 Mike Osborne, DO [address] [place] [address], [address], [facility] 4 10:35:53 Pulmonary emphysema 30588124 Active 2023 Mike Osborne DO [address] [place] [address], [address], [facility] 4 13:36:25 Problem Notes None recorded. Procedures Surgical History None recorded. Imaging Results Imaging Date Name Status LastModified by Organization Details LastModified Time 07/09/2023 XR, ribs, bilateral, 3 view completed [email or web address] [facility] [address] [place], [address], 07/10/2023 09:51:10 11/26/2023 complete PFT w/ post bronchodilator spirometry* completed [facility] [address] [place], [address], 11/27/2023 13:35:09 11/26/2023 complete PFT w/ post bronchodilator spirometry* completed [facility] [address] [facility], [place], [address], 11/27/2023 13:35:10 11/26/2023 complete PFT w/ post bronchodilator spirometry* completed [email or web address] [address] [facility] [address], [place], [address], 11/27/2023 13:35:11 Procedure Notes None recorded. Medical Equipment None Reported. Allergies No known drug allergies Medications Name Sig Start Date Stop Date Status Note LastModified by Organization Details LastModified Time bupropion HCl SR 150 mg tablet,12 hr sustained-r elease TAKE 1 TABLET BY MOUTH EVERY DAY active Not Available Not Available No t Available atorvastati n 80 mg tablet TAKE 1 TABLET DAILY active Not Available Not Available No t Available doxycycline hyclate 100 mg capsule TAKE 1 CAPSULE BY MOUTH TWICE A DAY FOR 10 DAYS 10/30 completed Not Available Not Available Not Available erythromyci n 500 mg tablet TAKE 2 TABLETS BY MOUTH AT 6 PM AND 10 PM THE NIGHT PRIOR TO SURGERY 05/23 completed Not Available Not Available Not Available azithromyci n 250 mg tablet TAKE 2 TABLETS BY MOUTH TODAY, THEN TAKE 1 TABLET DAILY FOR 4 DAYS DIRECTED active Not Available Not Available No t Available meloxicam 15 mg tablet TAKE 1 TABLET BY MOUTH EVERY DAY WITH MEALS FOR RIB PAIN active Not Available Not Available No t Available phenazopyri dine 200 mg tablet TAKE 1 TABLET BY MOUTH THREE TIMES A DAY NEEDED FOR 14 DAYS 05/23 completed Not Available Not Available Not Available amlodipine 2.5 mg tablet TAKE 1 TABLET BY MOUTH EVERY DAY 10/17 completed Not Available Not Available Not Available ciprofloxac in 500 mg tablet TAKE 1 TABLET BY MOUTH EVERY 12 HOURS FOR 3 DAYS 12/13 completed Not Available Not Available Not Available sulfamethox azole 800 mg-trimetho prim 160 mg tablet TAKE 1 TABLET BY MOUTH TWICE A DAY 10/07 completed Not Available Not Available Not Available tramadol 50 mg tablet TAKE 1 TABLET EVERY 6 HOURS BY ORAL ROUTE NEEDED FOR 7 DAYS, FOR RIB PAIN. 10/30 completed Not Available Not Available Not Available amoxicillin 500 mg tablet TAKE 1 TABLET FOUR TIMES A DAY 02/03 completed Not Available Not Available Not Available tamsulosin 0.4 mg capsule 1 po at hs active Not Available Not Available No t Available cephalexin 500 mg capsule TAKE 1 CAPSULE BY MOUTH TWICE A DAY 10/07 completed Not Available Not Available Not Available omeprazole 20 mg capsule,del ayed release TAKE 1 CAPSULE DAILY active Not Available Not Available No t Available codeine 10 mg-guaifene sin 100 mg/5 mL oral liquid TAKE 10 ML EVERY 4 HOURS BY ORAL ROUTE NEEDED, FOR COUGH. 10/07 completed Not Available Not Available Not Available Baby Aspirin 81 mg chewable tablet Chew 1 tablet every day by oral route. active d/c ASA Not Available Not Available Not Available metoprolol succinate ER 25 mg tablet,exte nded release 24 hr TAKE 1 TABLET BY MOUTH EVERY DAY active Not Available Not Available No t Available levofloxaci n 750 mg tablet TAKE 1 TABLET BY MOUTH EVERY DAY FOR 7 DAYS 12/13 completed Not Available Not Available Not Available methylpredn isolone 4 mg tablets in a dose pack TAKE 6 TABLETS ON DAY 1 DIRECTED ON PACKAGE AND DECREASE BY 1 TAB EACH DAY FOR A TOTAL OF 6 DAYS 10/07 completed Not Available Not Available Not Available neomycin 500 mg tablet TAKE 2 TABLETS BY MOUTH AT 6 PM AND 10 PM THE NIGHT PRIOR TO SURGERY 10/30 completed Not Available Not Available Not Available lisinopril 40 mg tablet TAKE 1 TABLET DAILY 2023 active Not Available Not Available Not Avai lable amoxicillin 875 mg-potassiu m clavulanate 125 mg tablet Take 1 tablet every 12 hours by oral route for 10 days. 03/12 completed Not Available Not Available Not Available oxycodone 5 mg tablet TAKE 1 TABLET (5 MG TOTAL) BY MOUTH EVERY 4 HOURS NEEDED 05/23 completed Not Available Not Available Not Available Pneumovax-2 3 25 mcg/0.5 mL injection syringe 09/06 completed Not Available Not Available Not Available GaviLyte-G 236 gram-22.74 gram-6.74 gram-5.86 gram oral solution TAKE 4,000 ML BY MOUTH ONCE FOR 1 DOSE. TAKE INSTRUCTE D DAY PRIOR TO SURGERY 12/13 /2023 completed Not Available Not Available Not Available Fluarix Quad (PF) 60 mcg (15 mcg x 4)/0.5 mL IM syringe 03/08 completed Not Available Not Available Not Available Wixela Inhub 250 mcg-50 mcg/dose powder for inhalation inhale 1 puff into the lungs bid active Not Available Not Available No t Available Fluzone High-Dose (PF) 180 mcg/0.5 mL intramuscul ar syringe 03/12 completed Not Available Not Available Not Available Fluzone High-Dose Quad (PF) 240 mcg/0.7 mL IM syringe ADMINISTE R 0.7ML IN THE MUSCLE DIRECTED 12/20 completed Not Available Not Available Not Available BinaxNOW COVID-19 Ag Self Test kit Use as Directed on the Package 10/17 completed Not Available Not Available Not Available Vitals Date Recorded Body height Body mass index (BMI) Body weight Heart rate Systolic blood pressure Diastolic blood pressure Provider Name and Address Organization Details Last Updated DateTime 3 175.26 cm 32.5 kg/m2 98961.3 2 g 96 /min 138 mm[Hg] 58 mm[Hg] [facility]ESSY [facility] [place], [address] [place] [address] [facility] 3 10:02:48 Date Recorded Body height Body mass index (BMI) Body weight Heart rate Oxygen saturation Oxygen saturation in Arterial blood by Pulse oximetry Systolic blood pressure Diastolic blood pressure Provider Name and Address Organization Details Last Updated DateTime 3 175.26 cm 32.5 kg/m2 12970.3 2 g 96 /min 94 % 94 % 178 mm[Hg] 68 mm[Hg] Lina Perez [facility] 3 13:48:31 Date Recorded Body height Body mass index (BMI) Body weight Heart rate Oxygen saturation Oxygen saturation in Arterial blood by Pulse oximetry Systolic blood pressure Diastolic blood pressure Provider Name and Address Organization Details Last Updated DateTime 4 175.26 cm 32.5 kg/m2 23846.3 2 g 97 /min 100 % 100 % 138 mm[Hg] 60 mm[Hg] Lina Perez [facility] 4 11:08:06 Date Recorded Body height Body mass index (BMI) Body weight Heart rate Respiratory rate Oxygen saturation Oxygen saturation in Arterial blood by Pulse oximetry Systolic blood pressure Diastolic blood pressure Provider Name and Address Organization Details Last Updated DateTime 4 176.53 cm 35.5 kg/m2 758224. 54 g 90 /min 18 /min 86 % 86 % 142 mm[Hg] 62 mm[Hg] Juanito Robles [facility] 4 10:11:15 Date Recorded Body height Body mass index (BMI) Body weight Heart rate Oxygen saturation Oxygen saturation in Arterial blood by Pulse oximetry Systolic blood pressure Diastolic blood pressure Provider Name and Address Organization Details Last Updated DateTime 4 176.53 cm 36.1 kg/m2 551657. 91 g 100 /min 90 % 90 % 156 mm[Hg] 80 mm[Hg] Juanito Robles [facility] 4 11:34:09 Social History Question Answer Notes LastModified by Organizat ion Details LastModified Time Tobacco Smoking Status Former Smoker Lina abrams [facility] 05/23/2023 13:46:50 What Was The Date Of Your Most Recent Tobacco Screening? 02/04/2024 [email or web address] Information not available 02/04/2024 How Much Tobacco Do You Smoke? No [email or web address] Information not available 05/23/2023 Do You Or Have You Ever Used Any Other Forms Of Tobacco Or Nicotine? No [email or web address] Information not available 09/12/2022 Sex: Unknown Functional Status None recorded. Mental Status None recorded. Family History Nothing Reported. Medical History Condition Response Gout N Blood Diseases N Kidney Stones N Hyperthyroidism Y Breast Cancer N Blood Transfusion N Hypothyroidism N Lung Disease N Depression N COPD Y Defects or Inherited Disease N Difficulty Swallowing N Meniere's disease N Muscle, Joint, or Bone Problems N Obesity N Vision or Eye Problems N Arthritis Y Infertility N Polyps N Mental Disorder N Cancer N Stroke N Varicosities N Endometriosis N Bladder or Kidney Problems N High Cholesterol Y Liver Disease N Fibromyalgia N Headaches Y Kidney Disease N Heart Problems N Hospitalizations N Thyroid Problems Y GI Problems N Eating Disorder N Skin Problems N MRSA exposure N Constipation N Mental Illness N Diabetes N Ovarian Cancer N Seizures/Epilepsy N Tuberculosis N Congestive Heart Failure (CHF) N Eczema N Diverticulitis N Asthma N Reflux/GERD N Hepatitis N Heart Disease N Pulmonary Embolism N Chronic Ear Infections N Pre-Eclampsia N Hypertension Y Chicken Pox N Autism Spectrum Disorder (ASD) N Osteoporosis N Thrombophilias N Immunizations Vaccine Type Date Status Note Provider Nam e and Address Organization Details Recorded Time COVID-19, mRNA, LNP-S, PF, 30 mcg/0.3 mL dose 07/27/19 21 completed Leatha Gencarellpayam abrams [facility] 12/20/2020 13:36:59 COVID-19, mRNA, LNP-S, PF, 30 mcg/0.3 mL dose 08/19/19 21 completed Leatha Gencarelle aliza [facility] 12/20/2020 13:37:08 Influenza, split virus, quadrivalent, preservative 02/25/20 21 completed [facility] 02/25/2021 14:53:45 COVID-19, mRNA, LNP-S, PF, 30 mcg/0.3 mL dose 03/11/20 21 completed Mike Osborne DO [address] [place] [address], [address], [facility] 03/12/2021 14:54:14 Influenza, split virus, quadrivalent, preservative 03/12/20 18 completed Mike Osborne DO [address] [place] [address], [address], [facility] 03/12/2019 09:01:40 pneumococcal polysaccharide PPV23 03/12/20 18 completed Mike Osborne DO [address] [place] [address], [address], [facility] 03/12/2019 09:01:40 COVID-19, mRNA, LNP-S, PF, 30 mcg/0.3 mL dose 09/12/19 22 completed Priscila abrams [facility] 09/12/2021 14:07:06 influenza, unspecified formulation 03/05/20 22 completed Anna abrams [facility] 07/21/2022 08:56:09 zoster recombinant 05/24/20 14 completed [facility] 07/21/2022 08:56:53 SARS-COV-2 (COVID-19) vaccine, UNSPECIFIED 04/24/20 23 completed [facility] 04/25/2023 11:54:22 Respiratory syncytial virus (RSV) MAB, unspecified 05/04/20 24 completed Mike Osborne, [address], [address], [facility] 05/04/2024 16:01:49 Influenza, split virus, quadrivalent, preservative 03/05/20 19 completed Mike Osborne, [address], [address], [facility] 03/12/2019 09:01:40 Influenza, high-dose, trivalent, PF 03/05/20 19 completed Mike Osborne, [address], [address], [facility] 03/12/2019 09:01:40 Influenza, split virus, quadrivalent, preservative 03/11/20 20 completed [facility] 03/12/2020 15:35:12 Past Encounters Encounter ID Performer Location Encounter Start Date Encounter Closed Date Diagnosis/Indication Diagnosis SNOMED-CT Code Diagnosis ICD10 Code Diagnosis Note [id number] Mike Osborne [facility] [address],[place] [address] 03/08/2018 08:57:02 03/08/2018 11:28:39 Impaired fasting glycemia 145855308 R73.01 a1c is 5.5 and feels well no major weight gain Hypertensive disorder 38 344033 I10 bp stable no prob with the meds Chronic ob structive pulmonary disease 17307546 J44.9 still smoking despite my warnings Tobacco de pendence syndrome 00607296 F17.200 Abdominal aortic aneurysm screening 549200177 Z13.6 [id number] Mike Osborne [facility] [address] [facility],[place] [address] 09/06/2018 09:04:49 09/06/2018 09:51:39 Hypercholesterolemia 12430983 E78.00 LDL is 100 Hypertensive disorder 38 231828 I10 bp stable no prob with the meds Impaired f asting glycemia 564673702 R73.01 a1c is 5.6 and feels well no major weight gain trying to be careful with diet Chronic ob structive pulmonary disease 01337698 J44.9 still smoking despite my warnings told we alexandro use Tobacco de pendence syndrome 88000881 F17.200 im worried he is not considerin g quitting at this time [id number] September AGAPITO Schumacher [facility] [address] [facility],[place] [address] 01/06/2019 09:53:30 01/06/2019 10:54:30 Acute sinusitis 65411882 J01.90 Tobacco user 036314976 Z 72.0 still smoking Hypertensive disorder 38 562554 I10 stable [id number] Mike Osborne [facility] [address] [facility],[place] [address] 03/12/2019 08:56:44 03/12/2019 10:33:53 Chronic obstructive pulmonary disease 92491823 J44.9 still smoking despite my warnings no active breathing problems Hypertensive disorder 38 394286 I10 bp stable no prob with the meds Hypercholesterolemia 136 59885 E78.00 LDL has been 92 Impaired f asting glycemia 106120073 R73.01 a1c is 5.5 and feels well no major weight gain trying to be careful with diet Tobacco de pendence syndrome 01274541 F17.200 im worried he is not considerin g quitting at this time [id number] Mike Osborne [facility] [address] [facility],[place] [address] 11/25/2019 15:54:03 11/25/2019 16:24:01 Hypercholesterolemia 65482213 E78.00 LDL has been 83 Chronic ob structive pulmonary disease 93574844 J44.9 still smoking despite my warnings no active breathing problems Hypertensive disorder 38 619697 I10 bp stable no prob with the meds is stable at home he has gained weight so he needs to drop a couple lbs Impaired f asting glycemia 995681455 R73.01 a1c is 5.5 and feels well no major weight gain not trying to be careful with diet [id number] Mike Waldron Alberto [facility] [address] [facility], [address] [facility] [place] [address] 06/21/2020 08:38:11 06/21/2020 13:30:28 Hypertensive disorder 87351757 I10 bp stable no prob with the meds is stable at home he has gained weight so he needs to drop a couple lbs Impaired f asting glycemia 888987408 R73.01 a1c is 5.7 ans was 5.5 and feels well no major weight gain not trying to be careful with diet Hypercholesterolemia 136 19373 E78.00 LDL has been 83 and is now LDL is 97 Chronic ob structive pulmonary disease 21070625 J44.9 still smoking despite my warnings no active breathing problems but again i am worried [id number] Mike Chivo Alberto [facility] [address] [facility], [place] [address] 12/20/2020 10:21:04 12/20/2020 11:07:09 Impaired fasting glycemia 817739960 R73.01 a1c is 5.7 ans was 5.5 and feels well no major weight gain not trying to be careful with diet Chronic ob structive pulmonary disease 85291006 J44.9 still smoking despite my warnings no active breathing problems but again i am worried Hypertensive disorder 38 959421 I10 bp stable no prob with the meds is stable at home he has gained weight so he needs to drop a couple lbs Hepatitis C screening 41 5111665 Z11.59 [id number] Mike OsvaldoJuan Osborne [facility] [address] [facility],[place] [address] 07/13/2021 08:22:28 07/13/2021 10:39:10 Chronic obstructive pulmonary disease 71151937 J44.9 still smoking despite my warnings no active breathing problems but again i am worried Hypertensive disorder 38 087721 I10 bp stable no prob with the meds is stable at home feeling welll no issue with meds Impaired f asting glycemia 023129266 R73.01 a1c is 5.7 ans was 5.5 and feels well no major weight gain not trying to be careful with diet [id number] Mike Osborne DO [facility] [address] [facility],[place] [address] 01/27/2022 08:56:04 01/27/2022 11:56:52 Hypertensive disorder 92522036 I10 bp stable no prob with the meds is stable at home feeling welll no issue with meds Impaired f asting glycemia 803621967 R73.01 a1c is still low at 5.8 and was 5.7 ans was 5.5 and feels well no major weight gain not trying to be careful with diet Hypercholesterolemia 136 36637 E78.00 LDL has been 97 and is now LDL is 71 Chronic ob structive pulmonary disease 60635858 J44.9 still smoking despite my warnings no active breathing problems but again i am still worriedbut we will have to monitor [id number] Mike Osborne DO [facility] [address] [facility] [facility] [address] 07/21/2022 08:50:24 07/21/2022 15:09:15 Hypertensive disorder 14253281 I10 bp stable no prob with the meds is stable at home feeling well no issue with meds Chronic ob structive pulmonary disease 17044772 J44.9 still smoking despite my warnings but down to 1/2 pk no active breathing problems but again i am still worriedbut we will have to monitor [id number] YESSY LINK [facility] [address] [facility] [address] 09/12/2022 09:51:57 09/12/2022 11:18:47 Chronic obstructive pulmonary disease 18150462 J43.8 stable today in office Bleeding from nose 33504 6005 R04.0 resolvedpa cking removed at ER prior to d/c Tobacco de pendence syndrome 10641165 F17.218 still smoking Hypertensive disorder 38 087820 I10 will continue on the lisinopril and add additional low dose amlodipine can double it up if his BP is still elevated [id number] YESSY LINK [facility] [address] [facility] [address] 10/17/2022 14:42:11 10/18/2022 11:16:11 Intolerant of cold 13029974 R68.89 agreed to set up with lab work Rib pain 320678468 R07.8 1 fell with trauma to the ribsno improvemen t with discomfort levelagree d to XRs Mack hematuria 58083976 5 R31.0 will set up with lab work and XRs Tobacco de pendence syndrome 66451738 F17.218 still smokingagr eed to wellbutrin for smoking cessation Essential hypertension 89536087 I10 start metoprolol 25 [place] [id number] YESSY LINK [facility] [address] [facility],[place] [address] 12/13/2022 09:56:07 12/13/2022 11:40:40 Pre-surgery evaluation 965943692 Z01.818 The patient was seen in the office today for pre-op evaluation . All medical conditions on patient's problem list were addressed and are currently stable, no interventi on needed at this time. Based on history and physical performed, the patient is cleared for surgery. Hypertensive disorder 38 510417 I10 stable on current treatment plan Chronic ob structive pulmonary disease 28143453 J43.8 stable in office today; O2 sat is 97% on RA [id number] Mike Osborne DO [facility] [address] [facility],[place] [address] 05/23/2023 13:44:11 05/23/2023 16:29:07 Essential hypertension 95295664 I10 stable at home will bring in readings cont current doses Hypercholesterolemia 136 37423 E78.00 LDL has been 97 and is now LDL is 71 Hypertensive disorder 38 710861 I10 bp stable no prob with the meds is stable at home feeling well no issue with meds [id number] YESSY LINK [facility] [address] [facility] [address] [place] [address] 10/08/2023 11:04:25 10/09/2023 08:21:20 Cough 97033650 R05.1 will give him a CXR order in case symptoms do not improve or fever sets in Family his tory of Cardiovascular disease 241750710 Z82.49 monitoring BP Acute bronchitis 0635123 2 J20.9 monitor on progress [id number] Mike Osborne [facility] [address] [facility] [address],[place] [address] 10/31/2023 09:59:20 10/31/2023 10:43:15 Prostate specific antigen above reference range 092262982 R97.20 per urol Dysuria 37120556 R30.0 per urologist Chronic ob structive pulmonary disease 56985158 J44.9 now is off the cigg for 8 mo but i certainly feel he has worsened his lungs Depression screening 171 543458 Z13.31 neg Hypertensive disorder 38 038812 I10 bp stable no prob with the meds is stable at home feeling well no issue with meds Morbid obesity 844219138 E66.01 discussion re portion control and avoidance of sweets etc [id number] Mike Osborne [facility] [address] [facility] [address] [address] 02/04/2024 11:24:23 02/04/2024 12:04:19 Adult health examination 725219856 Z00.00 has really put on the weight discussed at lengthalso discussed getting an abdom aortic aneurysm US Screening for cardiovascular system disease 028698896 Z13.6 Chronic ob structive pulmonary disease 09551718 J44.9 he is feeling better overall using the inhaler Essential hypertension 39791298 I10 stable at home will bring in readings cont current doseshas not done lab Hypercholesterolemia 136 21899 E78.00 LDL has been 97 and is now LDL is 71 Depression screening 171 572469 Z13.31 neg Impaired f asting glycemia 267506779 R73.01 a1c is still low at 5.8 and was 5.7 ans was 5.5 and feels well continues to be overweight not trying to be careful with diet Hypertensive disorder 38 397556 I10 bp stable no prob with the meds is stable at home feeling well no issue with meds Health Concerns Section Related Observation LastModified by Organization Detai ls LastModified Time None Recorded Concern Status LastModified by Organization Details LastModified Time None Recorded Advance Directives Directive None Recorded Payers Encounter Date Sequence Insurance Name Policy Number Policy [place] Covered Member ID Jefferson Member ID Guarantor Name 12/13/2022 1 [place]MEDICARE [place]PLAC[place] PPO) [id number] Josh Ernestina [id number] Josh P Ernestina 05/23/2023 [address] [facility] (MEDICARE [place]PLACEMENT PPO) [id number] Josh Ernestina [id number] Josh P Ernestina 10/08/2023 [address] [facility] (MEDICARE [place]PLACEMENT PPO) [id number] Josh Ernestina [id number] Josh P Ernestina 10/31/2023 [address] [facility]MED[place]ARE [place]PL[place]EMENT PPO) [id number] Josh Ernestina [id number] Josh P Ernestina 02/04/2024 [address] [facility] (MEDICARE [place]PLACEMENT PPO) [id number] Josh Ernestina [id number] Josh P Ernestina Notes Date Note Type Note Provider Name and Address Organization Details Recorded Time 3 text/htm l Pre-OpReported bypatient.Surgery to be Performed:sigmoidectomy with Dr. Ballesteros Risk Factorsno cognitive impairment; no functional impairment; no malnutrition; no frailty; able to climb a flight of stairs (exercise capacity>4 METS); no obstructive sleep apnea; no alcohol misuse; no illicit drug use; no chronic cardiopulmonary condition; not obese;smoker;chronic cardiopulmonary condition(HTN stable on medication, COPD) Anesthesia hx:no hx of anesthesia complications; no allergy to anesthetic agents; no family history of anesthesia complications Functional Ability:able to walk up stairs; able to perform heavy work around the house; no difficulty walking up hills; able to walk 4 mph Post-Op Support:adequate assistance at home () YESSY LINK [address] [place] [address], [phone], [facility] 12/13/2022 10:20:17 3 text/htm l Care Management - HypertensionReported bypatient.Self Care:not under emotional stress Severity:symptoms are improving; does not interfere with daily activities Associated Symptoms:no dizziness; no lightheadedness; no chest pain; no shortness of breath; no palpitations; no edema; no calf muscle cramps; no blurred vision; no confusion; no headaches; no fatigue here for rechk and is doing well following colo vesicular fistula repair with sigmoid colectomy and bladder wall resectionis done with cath and stents and had good check up from surg and is disch and good urol check up and is discharged home bps are good and will bring list next visit bp here is elevated Mike Osborne DO [address] [place], [address], [facility] 05/23/2023 14:06:38 4 text/htm l f.u chest congestion HTN: better today; 138/60 R arm sitting cough/congestion: will set up with CXR in case it does not improveif he develops fever, worsening breathing, worsening cough or wheezing, get XRhe can also call if he has any questions start doxy otherwisemild lessening of breath sounds but no rhonchi, crackles or wheezing noted vitals look stable today YESSY LINK [address] [place], [address], [facility] 10/08/2023 11:34:12 4 text/htm l Care Management - HypertensionReported bypatient.Self Care:not under emotional stress Severity:symptoms are improving; does not interfere with daily activities Associated Symptoms:no dizziness; no lightheadedness; no chest pain; no shortness of breath; no palpitations; no edema; no calf muscle cramps; no blurred vision; no confusion; no headaches; no fatigue here for rechk and is doing okrelates is nervous about the oxygen levelhas quit smoking 9 mo agohome bps are in the 140s over 80sno cp but does have exertional dysphas gaine d 20lbs eating a lot of ice cream not walking lots of exc Mike Osborne DO [address] [place], [address], [facility] 10/31/2023 10:42:13 4 text/htm l Medicare Annual Wellness VisitReported bypatient.Diet and Nutrition:healthy diet Fracture Risk:no history of fractures; no recent explained fracture; no sudden unexplained fractures; no previous musculoskeletal injuries Physical Activity:exercises on a regular basis; recent increase in physical activity; good physical condition Depression Risk:never feels sad, empty, or tearful; no loss of interest in activities; no significant changes in weight; no sleep disturbances or insomnia; no agitation; no loss of energy; no feelings of worthlessness or guilt; no thoughts of suicide; no history of depression; no history of mood disorders Orientation:no disorientation to time; no disorientation to date; no disorientation to place Concentration and Memory:no decreased concentrating ability; no memory lapses or loss; does not forget words Speech/Motor difficulties:no speech difficulties; no difficulty expressing formulated concepts; no difficulty with fine manipulative tasks; no difficulty writing/copying; no slowed reaction time; does not knock things over when trying to pick them up Hearing:no loss of hearing Vision:no vision problems Activities of Daily Living:able to bathe with limited or no assistance; able to contol urination and bowels; able to dress with limited or no assistance; able to feed self with limited or no assistance; able to get out of chair or bed with limited or no assistance; able to groom with limited or no assistance; able to toilet with limited or no assistance Instrumental Activities of Daily Living:able to do house work with limited or no assistance; able to grocery shop with limited or no assistance; able to manage medications with limited or no assistance; able to manage money with limited or no assistance; able to prepare meals with limited or no assistance; able to use the phone with limited or no assistance Falls Risk Assessment:no frequent falls while walking; no fall in the past year; no fall since last visit; no dizziness/vertigo Home Safety:no unsafe destinee hazzards; no unsafe stairs; no unsafe gas appliances; working smoke/CO detectors; wears protective head gear for biking/high velocity; use of seatbelts; practicing 'safer sex'; no vision or hearing loss while driving; no fire arms; has hand bars in the bathroom/shower; good lighting in the homeNotes:doing better with the [place] inhaler no longer coughing and wheezing Mike Osborne, DO [address] [facility], [place], [address], [facility] 02/04/2024 12:00:01
[2024-07-18 13:32] LABS: MANUAL DIFF FLAG NO
[2024-07-18 13:44] LABS: Basophils Percent Auto 0.7 % (0-2); Eosinophils Absolute Auto 0.1 X10*3/uL (0.0-0.4); Eosinophils Percent Auto 2.8 % (0-4); Hematocrit 43.5 % (42.0-52.0); Hemoglobin 14.1 g/dl (14.0-18.0); Imm Gran Abs Auto 0.01 X10*3/uL (0.00-0.03); Imm Gran Pct Auto 0.2 % (0.0-0.4); Lymphocytes Absolute Auto 1.5 X10*3/uL (1.2-4.9); Lymphocytes Percent Auto 32.1 % (20-40); Mean Corpuscular HGB Conc 32.4 g/dl (31.0-36.0); Mean Corpuscular Hemoglobin 30.5 pg (27.0-33.0); Mean Corpuscular Volume 94.2 fL (80.0-98.0); Mean Platelet Volume 11.5 fL (9.4-12.4); Monocytes Absolute Auto 0.5 X10*3/uL (0.1-1.2); Monocytes Percent Auto 11.3 % (2-11); Neutrophils Absolute Auto 2.4 x10*3/uL (2.0-8.3); Neutrophils Percent Auto 52.9 % (45-73); Platelet Count 158 X10*3/uL (160-400); Red Blood Count 4.62 X10*6/uL (4.60-5.80); Red Cell Distribution Width 12.9 % (11.0-16.0); White Blood Count 4.6 X10*3/uL (4.8-10.8)
[2024-07-18 13:58] LABS: Alanine Aminotransferase 21 U/L (0-40); Albumin Level 4.2 g/dL (3.5-5.0); Alkaline Phosphatase 68 U/L (39-117); Anion Gap 15 (12-20); Aspartate Amino Transferase 27 U/L (5-37); Bilirubin Total 0.4 mg/dL (0.0-1.0); Blood Urea Nitrogen 16 mg/dL (9-16); Calcium 9.3 mg/dL (8.4-10.2); Carbon Dioxide 31 mmol/L (22-29); Chloride 101 mmol/L (96-108); Cholesterol 143 mg/dL (<200); Estimated Glomerular Filt Rate > 60; Glucose Random 102 mg/dL (60-115); HDL Cholesterol 47 mg/dL (>40); LDL Cholesterol Calculated 75 mg/dL (<100); Potassium 4.8 mmol/L (3.3-5.1); Sodium 142 mmol/L (135-145); Total Protein 7.6 g/dL (6.5-8.0); Triglycerides 107 mg/dL (<150)
== END 2024-07-18 08:46 | disposition home or self-care (01) ==
LOC: HO.MANLDS 08:45
PROVIDERS: Visit Provider Internal Medicine
DX: Z12.5 Encounter for screening for malignant neoplasm of prostate (principal); I10 Essential (primary) hypertension; E78.00 Pure hypercholesterolemia, unspecified
CPT/HCPCS: 36415; 80053; 80061; 84153; 85025